=== PATIENT | male | born 1950 | race Caucasian/White ===

== ENCOUNTER 2019-08-15 13:52 | Observation (INO) | payer BC ==
--- NOTE | 2019-08-15 14:34 | RAD ---
XR Chest 1 View Portable HISTORY: Chest pain COMPARISON: 08/10/2014 FINDINGS: The heart size is normal. The lungs are well expanded without focal areas of consolidation, pneumothorax or pleural effusions. IMPRESSION: No radiographic evidence of acute cardiopulmonary process.
[2019-08-15] MEDS ORDERED: Nitroglycerin 2% Ointment 1 INCH/1 GM Packet ONE (14:51)
[2019-08-15] MEDS ORDERED: Aspirin Chewable 81 MG TAB ONE (14:51)
[2019-08-15 15:00] LABS: #Basophils 0.1 thou/uL (0.0-0.2); #Eosinphils 0.1 thou/uL (0.0-0.7); #Lymphocytes 1.9 thou/uL (1.20-3.40); #Monocytes 0.5 thou/uL (0.11-0.59); #Neutrophils 4.5 thou/uL (1.40-6.50); %Basophils 1.3 % (0.0-1.0); %Eosinophils 1.3 % (0.0-10.0); %Lymphocytes 26.9 % (21.0-51.0); %Monocytes 6.6 % (0.0-10.0); Hemoglobin 14.2 g/dL (14.0-18.0); Mean Corpuscular HGB CONC 34.4 g/dL (32.0-36.0); Mean Corpuscular Hemoglobin 31.2 pg (27.0-31.0); Mean Corpuscular Volume 90.5 fL (78.0-98.0); Mean Platelet Volume 6.9 fL (7.4-10.4); Platelet Count 233 thou/uL (130-400); RBC Distribution Width 12.7 % (11.5-14.5); Red Blood Cell (RBC) Count 4.57 mill/uL (4.70-6.10); White Blood Cell (WBC) Count 7.1 thou/uL (4.8-10.8)
[2019-08-15 15:23] LABS: ALT (SGPT) 17 U/L (8-55); AST (SGOT) 31 U/L (5-34); Albumin 4.3 g/dL (3.4-4.8); Alkaline Phosphatase 83 U/L (40-150); Anion Gap 14 mmol/L (10-20); BUN (Urea Nitrogen) 14 mg/dL (8.4-25.7); Bilirubin, Total 0.9 mg/dL (0.2-1.2); Calc. Creatinine Clearance 0 mL/min (70-130); Calcium 9.4 mg/dL (7.8-10.44); Carbon Dioxide 25 mmol/L (23-31); Chloride 106 mmol/L (98-107); Estimated GFR-MDRD 72; Globulin 2.4 g/dL (2.4-3.5); Glucose 90 mg/dL (80-115); Lipase 23 U/L (8-78); Potassium 5.2 mmol/L (3.5-5.1); Protein, Total 6.7 g/dL (5.8-8.1); Sodium 140 mmol/L (136-145)
[2019-08-15] MEDS ORDERED: Nitroglycerin 0.4 MG TAB (25 Tab Bottle) PO PRN (18:14)
[2019-08-15] MEDS ORDERED: Acetaminophen 325 MG TAB PO PRN (18:14)
[2019-08-15] MEDS ORDERED: Ondansetron PF 4 MG/2 ML Vial IVP PRN (18:14)
[2019-08-15] MEDS ORDERED: Senokot S 8.6-50 MG TAB PO PRN (18:14)
[2019-08-15] MEDS ORDERED: Guaifenesin DM 100-10/5 ML UDCUP PO PRN (18:14)
[2019-08-15] MEDS ORDERED: Bisacodyl 10 MG SUPP PR PRN (18:14)
[2019-08-15 18:23] VITALS: BMI 28.7
[2019-08-15 18:25] LABS: Troponin I Less than 0.010 ng/mL (< 0.028)
[2019-08-15] MEDS: Famotidine 20 MG TAB PO SCH (20:35)
--- NOTE | 2019-08-15 20:55 | HP ---
REASON FOR ADMISSION: Chest pain. HISTORY OF PRESENTING ILLNESS: The patient gives history of having chest pain off and on yesterday. This morning it became continuous pain in the retrosternal area with radiation to the left shoulder. The pain was 5/10 to 6/10 in intensity and was a deep pain. Currently, the pain is a bit faint, but still present. He has had a stress test which he recalls more than 5 years ago, which was negative. The patient also mentions that he has some allergic cough due to ragweed season. No fever or expectoration. 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 Recently he finished working up his valuescope. PAST MEDICAL AND SURGICAL HISTORY: History of fibromyalgia, mild hypertension, thoracic spine surgery, chronic cervical disk disease on amitriptyline. CURRENT MEDICATIONS: Takes; 1. Amitriptyline 150 mg p.o. at bedtime. 2. Lipitor 10 mg p.o. at bedtime. 3. Lisinopril 2.5 mg p.o. daily. ALLERGIES: TO PENICILLINS. PERSONAL HISTORY: Does not abuse alcohol or drugs. No history of smoking. Lives with his . FAMILY HISTORY: Mother at the age of 87 years. She has had history of dementia. Father at the age of 81. He has had history of coronary artery disease/IA. CODE STATUS: Full. Power of litigation attorney is his . REVIEW OF SYSTEMS: CONSTITUTIONAL: Negative for weight loss or gain, ability to conduct usual activities. SKIN: Negative for rash, itching. EYES: Negative for double vision, pain. ENT/MOUTH: Negative for nose bleeding, neck stiffness, pain, tenderness. CARDIOVASCULAR: Negative for palpitations, dyspnea on exertion, orthopnea. RESPIRATORY: Negative for shortness of breath, wheezing, cough, hemoptysis, fever or night sweats. GASTROINTESTINAL: Negative for poor appetite, abdominal pain, heartburn, nausea , vomiting, constipation, or diarrhea. GENITOURINARY: Negative for urgency, frequency, dysuria, nocturia. MUSCULOSKELETAL: Negative for pain, swelling. NEUROLOGIC/PSYCHIATRIC: Negative for anxiety, depression. ALLERGY/IMMUNOLOGIC: Negative for skin rash, bleeding tendency. PHYSICAL EXAMINATION: GENERAL: The patient is a 69-year-old male who is currently not in any acute distress. VITAL SIGNS: Blood pressure on arrival was 169/80, pulse 82 per minute, respiratory rate 16 per minute, temperature 97.3 degrees Fahrenheit, saturating 96% on room air. NECK: Supple. No elevated JVD. HEENT: Eyes; extraocular muscles intact. Pupils reacting to light. Oral cavity, mucous membranes are moist. No exudates or congestion. CARDIOVASCULAR SYSTEM: S1, S2 heard. Regular rhythm. RESPIRATORY SYSTEM: Air entry 2+ bilateral. No rales or rhonchi. ABDOMEN: Soft. Bowel sounds heard. No tenderness, rigidity, or guarding. EXTREMITIES: No peripheral edema or calf tenderness. VASCULAR SYSTEM: Peripheral pulses 1+ bilateral. No ischemic ulcerations or gangrene. CENTRAL NERVOUS SYSTEM: No gross focal deficits noted. The patient is alert, awake, oriented well. PSYCHIATRIC SYSTEM: The patient's mood is euthymic. No hallucinations or delusions. LABORATORY DATA: White count of 7, H and H 14 and 41, platelet count is 233, MCV is 90 with 64% neutrophils. Potassium is 5.2, BUN 14, creatinine 1.0, serum bicarb 25, serum glucose 90. Liver enzymes within normal limits. Troponin x2 negative. Lipase is 23. Chest x-ray done shows no acute cardiopulmonary abnormalities. EKG done shows normal sinus rhythm at 80 beats per minute. CLINICAL IMPRESSION AND PLAN: The patient will be under observation on telemetry for chest pain, rule out acute coronary syndrome. He has had 2 sets of troponin that are negative. We will obtain an exercise Cardiolite stress test in a.m. if this is negative, he will be discharged home. He will be kept n.p.o. after midnight. We will continue him on full-dose aspirin, home dose of Elavil, Lipitor, and lisinopril. The patient has mild hypertension on arrival, likely due to anxiety, we will closely monitor him. He will be on a small dose of Lopressor for cardiac protection. Job ID: [id number] [facility]
[2019-08-15] MEDS ORDERED: Amitriptyline HCl 100 MG TAB PO SCH ×3 (21:00)
[2019-08-15] MEDS ORDERED: Atorvastatin Calcium 20 MG TAB PO SCH ×2 (21:00)
[2019-08-15] MEDS ORDERED: Lisinopril 20 MG TAB PO SCH ×2 (21:00)
[2019-08-15] MEDS ORDERED: Atorvastatin Calcium 10 MG TAB PO SCH (21:00)
[2019-08-15] MEDS: Metoprolol Tartrate 25 MG TAB PO SCH (21:12)
[2019-08-15 21:24] LABS: Troponin I Less than 0.010 ng/mL (< 0.028)
[2019-08-16 06:45] LABS: Anion Gap 10 mmol/L (10-20); BUN (Urea Nitrogen) 18 mg/dL (8.4-25.7); Calc. Creatinine Clearance 86 mL/min (70-130); Calcium 8.7 mg/dL (7.8-10.44); Carbon Dioxide 27 mmol/L (23-31); Chloride 104 mmol/L (98-107); Estimated GFR-MDRD 76; Glucose 95 mg/dL (80-115); Potassium 3.9 mmol/L (3.5-5.1); Sodium 137 mmol/L (136-145)
[2019-08-16] MEDS ORDERED: Enoxaparin Sodium 40 MG/0.4 ML SYRINGE SC SCH (09:00)
[2019-08-16] MEDS ORDERED: Aspirin 325 mg Enteric Coated Tablet PO SCH (09:00)
[2019-08-16] MEDS ORDERED: Lisinopril 10 MG TAB PO SCH ×2 (09:00)
[2019-08-16] MEDS ORDERED: Lisinopril 2.5 MG TAB PO SCH (09:00)
[2019-08-16] MEDS: Famotidine 20 MG TAB PO SCH (12:01)
[2019-08-16] MEDS: Metoprolol Tartrate 25 MG TAB PO SCH (12:04)
[2019-08-16 12:39] VITALS: BP 127/66; TEMP 98.5
--- NOTE | 2019-08-16 12:47 | NM ---
CARDIAC SPECT: 08/16/19 HISTORY: 69-year-old male with chest pain, hypertension. TECHNIQUE: A myocardial perfusion scan is performed using the single isotope one day protocol with technetium 99 m-Sestamibi. 10 millicuries was injected intravenously for rest followed by [address] ress study. Pharmacologic test with Adenosine was monitored and interpreted by Dr. Thompson. FINDINGS: Homogeneous tracer distribution seen in the myocardial segments on stress and rest images Without fix ed or reversible defects. Gated SPECT LVEF: 74%. Wall motion exam: Normal. IMPRESSION: Normal myocardial perfusion scan. POS: OFF
[2019-08-16] MEDS ORDERED: ADENOSINE 60 MG/20 ML VIAL ONE (15:55)
--- NOTE | 2019-08-17 14:10 | DIS ---
DATE OF ADMISSION: 08/15/2019 DATE OF DISCHARGE: 08/16/2019 DISCHARGE DISPOSITION: Home. PRIMARY DISCHARGE DIAGNOSIS: Chest pain, which is noncardiac. SECONDARY DISCHARGE DIAGNOSES: Hypertension, fibromyalgia, cervical disk disease, dyslipidemia. PROCEDURES DONE DURING HOSPITALIZATION: The patient has had chest x-ray done, which showed no acute cardiopulmonary process. Nuclear stress test done showed ejection fraction of 74% with normal wall motion and normal myocardial perfusion scan. H and H of 14 and 41, platelet count of 233, MCV is 90. Troponin x3 negative. BUN 18 , creatinine 0.9. DISCHARGE MEDICATIONS: 1. Amitriptyline 150 mg p.o. at bedtime. 2. Lipitor 20 mg p.o. at bedtime. 3. Lisinopril 20 mg p.o. at bedtime and 10 mg p.o. q.a.m. ALLERGIES: ALLERGIC TO PENICILLIN. HE IS ALLERGIC TO WASP STINGS. DISCHARGE PLAN: The patient to follow up with Dr. Mendoza, his primary care physician, in 1 week. BRIEF COURSE DURING HOSPITALIZATION: The patient initially came in with complaints of chest pain off and on with risk factors for ACS. He was placed under observation on telemetry. Three sets of troponin were negative. Nuclear stress test done showed no reversible ischemia. He is hemodynamically stable with no further episodes of chest pain. His initial episode of chest pain likely is noncardiac. He is tolerating oral solid diet prior to discharge. He is advised to follow up with his primary care physician in 1 week. Please note, I have seen and examined patient on the day of discharge. Job ID: [id number] [facility]
--- NOTE | 2019-08-19 13:29 | EKG ---
Test Reason : Blood Pressure : / mmHG Vent. Rate : 080 BPM Atrial Rate : 080 BPM P-R Int : 132 ms QRS Dur : 082 ms QT Int : 356 ms P-R-T Axes : 039 029 043 degrees QTc Int : 410 ms Normal sinus rhythm Possible Left atrial enlargement Borderline ECG Confirmed by NOAH WATTS, URVASHI ([id number]), editor map JUNI ESPINOSA ([id number]) on 08/19/2019 1:28:56 PM Referred By: Confirmed By:URVASHI ZAMORA MD
== END 2019-08-16 13:53 | disposition home or self-care (01) ==
LOC: ERS 13:52 → 2SW 16:20
PROVIDERS: ADMIT Internal Medicine; ATTEND Internal Medicine
DX: R07.89 Other chest pain (principal); I10 Essential (primary) hypertension; M79.7 Fibromyalgia; M50.90 Cervical disc disorder, unspecified, unspecified cervical region; E78.5 Hyperlipidemia, unspecified; Z79.899 Other long term (current) drug therapy; Z88.0 Allergy status to penicillin; Z91.038 Other insect allergy status
CPT/HCPCS: 36415; 71045; 78452; 80048; 80053; 83690; 84484; 85025; 93005; 93017; 94760; 96372; A9500; G0378; J0153; J1650

== ENCOUNTER 2021-05-09 09:32 | Outpatient (CLI) | payer MEDICARE, BC | END 2021-05-09 09:33 | disposition home or self-care (01) | LOC: NM 09:32 | PROVIDERS: ATTEND Radiology Radiation Oncology | DX: C61 Malignant neoplasm of prostate (principal) | CPT/HCPCS: 78306; A9503 ==

== ENCOUNTER 2022-01-29 13:03 | Outpatient (CLI) | payer MEDICARE, BC ==
[2022-01-29 15:33] LABS: Hemoglobin 14.2 g/dL (13.5-17.5); Mean Corpuscular Hemoglobin 28.8 pg (27.0-33.0); Mean Corpuscular Volume 87.2 fl (81.2-95.1); Mean Platelet Volume 9.2 fl (7.4-10.4); Platelet Count 247 10x3/uL (150-450); RBC Distribution Width 13.7 % (11.5-14.5); Red Blood Cell (RBC) Count 4.93 10x6/uL (4.32-5.72); White Blood Cell (WBC) Count 6.7 10x3/uL (3.5-10.5)
[2022-01-29 15:35] LABS: Bilirubin Neg (Negative); Blood, Urine 25 (Negative); Clarity Clear (Clear); Glucose, Urine (Dipstick) Normal (Negative); Ketone, Urine Negative (Negative); Leukocyte Negative (Negative); Nitrite Negative (Negative); Protein, Urine (Dipstick) Negative (Neg-Trace); Urobilinogen Normal mg/dL (Less than 2)
[2022-01-29 15:44] LABS: Anion Gap 18 mmol/L (10-20); BUN (Urea Nitrogen) 15 mg/dL (8.4-25.7); Calc. Creatinine Clearance 0 mL/min (70-130); Calcium 9.3 mg/dL (7.8-10.44); Carbon Dioxide 24 mmol/L (23-31); Chloride 106 mmol/L (98-107); Glucose 98 mg/dL (83-110); Potassium 4.5 mmol/L (3.5-5.1); Sodium 143 mmol/L (136-145)
[2022-01-29 15:54] LABS: Bacteria/HPF Rare-Few HPF (None Seen); RBC/HPF 0-3 HPF (0-3); Squamous Epithelial 0-3 HPF (0-3); WBC/HPF 0-3 HPF (0-3)
[2022-01-30 02:33] LABS: SARS-CoV-2 PCR by NAA Not Detected (NotDetected)
== END 2022-01-29 13:04 | disposition home or self-care (01) ==
LOC: LABBT 13:03
PROVIDERS: ATTEND Urology
DX: Z01.818 Encounter for other preprocedural examination (principal); C61 Malignant neoplasm of prostate; N52.31 Erectile dysfunction following radical prostatectomy; N39.3 Stress incontinence (female) (male); Z20.822 Contact with and (suspected) exposure to COVID-19
CPT/HCPCS: 80048; 81001; 85027; 87086; 93005; U0003; U0005; 93010

== ENCOUNTER 2022-02-03 05:51 | Day surgery (SDC) | payer MEDICARE, BC ==
[2022-01-26 14:14] VITALS: BMI 33.4
[2022-02-03] MEDS ORDERED: Gentamicin 240 MG in Sodium Chloride 0.9% 100 ML IVPB SCH (06:15)
[2022-02-03] MEDS ORDERED: CEFAZOLIN 1 GM VIAL ONE (06:42)
[2022-02-03] MEDS ORDERED: Neomycin-Polymyxin 1 ML AMP ONE (06:42)
[2022-02-03] MEDS ORDERED: Bacitracin Zinc Ointment 30 gm TUBE ONE (06:42)
[2022-02-03] MEDS ORDERED: Bupivacaine 0.25% HCL 30 ML VIAL ONE ×2 (06:42→08:11)
[2022-02-03] MEDS ORDERED: Tobramycin 80 MG/2 ML VIAL ONE (06:47)
[2022-02-03] MEDS ORDERED: Fentanyl 250 MCG/5 ML VIAL ONE ×2 (06:50→09:17)
[2022-02-03] MEDS ORDERED: ceFAZolin 2 GM/Dextrose 50 ML IVPB ONE (07:27)
[2022-02-03] MEDS ORDERED: PROPOFOL 200 MG/20 ML VIAL ONE (07:40)
[2022-02-03] MEDS ORDERED: Lidocaine 1% PF 5 ML VIAL ONE (07:40)
[2022-02-03] MEDS ORDERED: Dexamethasone 20 MG/5 ML VIAL ONE (07:40)
[2022-02-03] MEDS ORDERED: Ketorolac Tromethamine 30 MG/ML VIAL ONE (07:40)
[2022-02-03] MEDS ORDERED: Ondansetron PF 4 MG/2 ML Vial ONE (07:40)
[2022-02-03] MEDS ORDERED: ePHEDrine 50 MG/ML VIAL ONE (07:40)
== END 2022-02-03 10:45 | disposition home or self-care (01) ==
LOC: SDC 05:51
PROVIDERS: ATTEND Urology
PROC: 0THD0LZ Insertion of Artificial Sphincter into Urethra, Open Approach (ICD-10-PCS; principal; 2022-02-03)
DX: N39.3 Stress incontinence (female) (male) (principal); N52.31 Erectile dysfunction following radical prostatectomy; C61 Malignant neoplasm of prostate; E78.00 Pure hypercholesterolemia, unspecified; I10 Essential (primary) hypertension; M10.9 Gout, unspecified; M79.7 Fibromyalgia; M19.90 Unspecified osteoarthritis, unspecified site; E66.9 Obesity, unspecified; Z68.33 Body mass index [BMI] 33.0-33.9, adult; Z79.899 Other long term (current) drug therapy; Z88.0 Allergy status to penicillin; Z88.5 Allergy status to narcotic agent; Z91.038 Other insect allergy status
CPT/HCPCS: C1813; C1889; J0690; J1100; J1580; J1885; J2405; J2704; J3010; J3260; J3370; J3490; S0020